=== PATIENT | male | born 1940 | race African-American/Black ===

== ENCOUNTER 2022-09-20 19:12 | Inpatient (IN) | payer MEDICARE, MEDICAID ==
[~2022-09-20] VITALS: Ht 185.4 cm; Wt 77.0 kg
[2022-09-20] MEDS ORDERED: ALLO-45 PO (22:37)
[2022-09-20] MEDS ORDERED: FOLI-130 PO (22:37)
[2022-09-20] MEDS ORDERED: ENOX40SY14 SQ (22:37)
[2022-09-20] MEDS ORDERED: SERT-158 PO (22:37)
[2022-09-20 22:48] LABS: BASOPHILS % (AUTO) 0.6 % (0.0-2.0); EOSINOPHILS % (AUTO) 0.6 % (1.0-6.0); HEMATOCRIT 26.5 % (41-53); HEMOGLOBIN 8.9 g/dL (13.5-17.5); LYMPHOCYTES # (AUTO) 0.8 K/uL (1.0-4.8); LYMPHOCYTES % (AUTO) 20.9 % (22.0-44.0); MEAN CORPUSCULAR HEMOGLOBIN 27.8 pg (26.0-34.0); MEAN CORPUSCULAR HGB CONC 33.7 G/dL (31.0-37.0); MEAN CORPUSCULAR VOLUME 83 fL (80-100); MONOCYTES # (AUTO) 0.5 K/uL (0.1-1.0); MONOCYTES % (AUTO) 12.6 % (2.0-9.0); NEUTROPHILS # (AUTO) 2.6 K/uL (1.8-7.7); NEUTROPHILS % (AUTO) 65.3 % (40.0-70.0); PLATELET COUNT (AUTO) 208 K/uL (150-450); RED BLOOD CELL COUNT(AUTO) 3.21 MIL/uL (4.50-5.90); RED CELL DISTRIBUTION WIDTH 15.1 % (11.5-14.5)
[2022-09-20 22:54] LABS: ANION GAP 7 mmol/L (8-16); CALCIUM, TOTAL 8.7 mg/dL (8.8-10.5); CARBON DIOXIDE 26 mmol/L (22-29); CHLORIDE 100 mmol/L (98-107); CREATININE 1.36 mg/dL (0.60-1.30); GLUCOSE,RANDOM 99 mg/dL (70-110); POTASSIUM 4.4 mmol/L (3.5-5.1); SODIUM SERUM 133 mmol/L (136-145); UREA NITROGEN, BLOOD 33 mg/dL (7-18)
[2022-09-20 22:56] LABS: GLOMERULAR FILTR. RATE CALC 50 mL/min (>60)
[2022-09-20 23:00] LABS: ALANINE AMINOTRANSFERASE 19 U/L (12-78); ALBUMIN 2.8 g/dL (3.4-5.0); ALKALINE PHOSPHATASE 89 U/L (46-116); ASPARTATE AMINOTRANSFERASE 39 U/L (15-37); BILIRUBIN,TOTAL 0.3 mg/dL (0.1-1.0); TOTAL PROTEIN, SERUM 6.4 g/dL (6.4-8.2)
[2022-09-20 23:00] LABS: AMPHET/METH SCREEN,URINE NEGATIVE (NEGATIVE); BARBITURATE SCREEN, URINE NEGATIVE (NEGATIVE); BENZODIAZEPINES SCREEN,URINE NEGATIVE (NEGATIVE); CANNABINOID SCREEN,URINE NEGATIVE (NEGATIVE); COCAINE SCREEN,URINE NEGATIVE (NEGATIVE); METHADONE SCREEN, URINE NEGATIVE (NEGATIVE); OPIATE SCREEN,URINE NEGATIVE (NEGATIVE)
[2022-09-20 23:01] LABS: PHENCYCLIDINE SCREEN,URINE NEGATIVE (NEGATIVE)
[2022-09-20] MEDS ORDERED: LORazepam 1 MG TABLET PO ONE (23:30)
[2022-09-21 00:47] LABS: COVID AG,FIA SOURCE NASAL SWAB
[2022-09-21] MEDS: LORazepam 2 MG TABLET PO PRN ×2 (10:17→18:02)
[2022-09-21] MEDS: HALOPERIDOL 5 MG TABLET PO PRN ×2 (10:17→18:02)
[2022-09-21 11:19] VITALS: BP 138/86
[2022-09-21 16:05] VITALS: BP 131/82
[2022-09-21] MEDS ORDERED: ONDANSETRON HCL 4 MG TABLET PO PRN (16:45)
[2022-09-21] MEDS ORDERED: MAGNESIUM HYDROXIDE SUSPENSION 30 ML UDCUP PO PRN (16:45)
[2022-09-21] MEDS ORDERED: DOCUSATE SODIUM 100 MG CAPSULE PO PRN (16:45)
[2022-09-21] MEDS ORDERED: MAG HYDROX/AL HYDROX/SIMETH ES 30 ML SUSPENSION UDCUP PO PRN (16:45)
[2022-09-21] MEDS ORDERED: ACETAMINOPHEN 325 MG TABLET PO PRN (16:45)
[2022-09-21] MEDS ORDERED: ALBUTEROL SULFATE HFA 90 MCG/PUFF 8 GM INHALER IH PRN (16:45)
[2022-09-21] MEDS ORDERED: PETROLATUM,WHITE 28 GM JELLY TP PRN (16:45)
[2022-09-21] MEDS ORDERED: IBUPROFEN 400 MG TABLET PO PRN (16:45)
[2022-09-21] MEDS ORDERED: NICOTINE 14 MG/24 HOUR PATCH TD PRN (16:45)
[2022-09-21] MEDS ORDERED: LOPERAMIDE HCL 2 MG CAPSULE PO PRN (16:45)
[2022-09-21] MEDS ORDERED: GuaiFENesin/D-METHORPHAN [SUGAR-FREE] 200-20MG/10 ML SYRUP UDCUP PO PRN (16:45)
[2022-09-21] MEDS ORDERED: CloNIDine HCL 0.1 MG TABLET PO PRN (16:45)
[2022-09-21] MEDS: SENNOSIDES/DOCUSATE SODIUM 8.6-50 MG TABLET PO SCH (20:43)
[2022-09-22 09:04] VITALS: BP 162/76
[2022-09-22] MEDS: ALLOPURINOL 300 MG TABLET PO SCH (09:30)
[2022-09-22] MEDS: MULTIVITAMINS WITH MINERALS, THERAPEUTIC TABLET PO SCH (09:30)
[2022-09-22] MEDS: LORazepam 2 MG TABLET PO PRN (10:15)
[2022-09-22] MEDS: DIVALPROEX SODIUM 250 MG DR TABLET PO SCH ×2 (11:35→21:15)
[2022-09-22] MEDS: SERTRALINE HCL 50 MG TABLET PO SCH (11:37)
[2022-09-22 16:07] VITALS: BP 162/87
[2022-09-22] MEDS: MELATONIN 5 MG TABLET PO SCH (21:15)
[2022-09-22] MEDS: SENNOSIDES/DOCUSATE SODIUM 8.6-50 MG TABLET PO SCH (21:28)
[2022-09-23 02:10] VITALS: BP 161/91
[2022-09-23] MEDS: LORazepam 2 MG TABLET PO PRN ×2 (02:11→10:14)
[2022-09-23] MEDS: HALOPERIDOL 5 MG TABLET PO PRN ×2 (02:12→10:14)
[2022-09-23] MEDS: MULTIVITAMINS WITH MINERALS, THERAPEUTIC TABLET PO SCH (08:52)
[2022-09-23] MEDS: DIVALPROEX SODIUM 250 MG DR TABLET PO SCH ×2 (08:53→20:51)
[2022-09-23] MEDS: SERTRALINE HCL 50 MG TABLET PO SCH (08:53)
[2022-09-23] MEDS: ALLOPURINOL 300 MG TABLET PO SCH (08:54)
[2022-09-23 09:09] VITALS: BP 131/67
[2022-09-23 16:56] VITALS: BP 134/80
[2022-09-23] MEDS: MELATONIN 5 MG TABLET PO SCH (20:51)
[2022-09-23] MEDS: SENNOSIDES/DOCUSATE SODIUM 8.6-50 MG TABLET PO SCH (20:51)
[2022-09-24 04:03] VITALS: BP 165/94
[2022-09-24] MEDS: HALOPERIDOL 5 MG TABLET PO PRN (04:09)
[2022-09-24] MEDS: LORazepam 2 MG TABLET PO PRN (04:09)
[2022-09-24 08:00] VITALS: BP 133/86
[2022-09-24] MEDS: ALLOPURINOL 300 MG TABLET PO SCH (08:40)
[2022-09-24] MEDS: DIVALPROEX SODIUM 250 MG DR TABLET PO SCH ×2 (08:40→20:12)
[2022-09-24] MEDS: SERTRALINE HCL 50 MG TABLET PO SCH (08:40)
[2022-09-24] MEDS: MULTIVITAMINS WITH MINERALS, THERAPEUTIC TABLET PO SCH (08:40)
[2022-09-24 16:00] VITALS: BP 147/87
[2022-09-24] MEDS: SENNOSIDES/DOCUSATE SODIUM 8.6-50 MG TABLET PO SCH (20:12)
[2022-09-24] MEDS: MELATONIN 5 MG TABLET PO SCH (20:12)
[2022-09-24] MEDS: ZOLPIDEM TARTRATE 10 MG TABLET PO PRN (23:35)
[2022-09-25 08:42] VITALS: BP 136/86
[2022-09-25] MEDS: MULTIVITAMINS WITH MINERALS, THERAPEUTIC TABLET PO SCH (11:10)
[2022-09-25] MEDS: SERTRALINE HCL 50 MG TABLET PO SCH (11:10)
[2022-09-25] MEDS: ALLOPURINOL 300 MG TABLET PO SCH (11:11)
[2022-09-25] MEDS: DIVALPROEX SODIUM 250 MG DR TABLET PO SCH ×2 (11:11→21:47)
[2022-09-25] MEDS: HALOPERIDOL 5 MG TABLET PO PRN (11:14)
[2022-09-25] MEDS: LORazepam 2 MG TABLET PO PRN (11:14)
[2022-09-25 16:44] VITALS: BP 132/82
[2022-09-25 20:31] VITALS: BP 133/76
[2022-09-25] MEDS: MELATONIN 5 MG TABLET PO SCH (21:48)
[2022-09-25] MEDS: ZOLPIDEM TARTRATE 10 MG TABLET PO PRN (21:48)
[2022-09-25] MEDS: SENNOSIDES/DOCUSATE SODIUM 8.6-50 MG TABLET PO SCH (21:49)
[2022-09-26 06:43] LABS: COVID AG,FIA SOURCE NASAL SWAB
[2022-09-26] MEDS: SERTRALINE HCL 50 MG TABLET PO SCH (08:42)
[2022-09-26] MEDS: DIVALPROEX SODIUM 250 MG DR TABLET PO SCH ×2 (08:42→20:19)
[2022-09-26] MEDS: MULTIVITAMINS WITH MINERALS, THERAPEUTIC TABLET PO SCH (08:43)
[2022-09-26] MEDS: ALLOPURINOL 300 MG TABLET PO SCH (08:43)
[2022-09-26 09:24] VITALS: BP 130/79
[2022-09-26 16:45] VITALS: BP 138/88
[2022-09-26] MEDS: SENNOSIDES/DOCUSATE SODIUM 8.6-50 MG TABLET PO SCH (20:17)
[2022-09-26] MEDS: MELATONIN 5 MG TABLET PO SCH (20:17)
[2022-09-26 21:10] VITALS: BP 123/80
[2022-09-27 08:26] VITALS: BP 121/77
[2022-09-27] MEDS: SERTRALINE HCL 50 MG TABLET PO SCH (09:00)
[2022-09-27] MEDS: DIVALPROEX SODIUM 250 MG DR TABLET PO SCH (09:00)
[2022-09-27] MEDS: MULTIVITAMINS WITH MINERALS, THERAPEUTIC TABLET PO SCH (09:00)
[2022-09-27] MEDS: ALLOPURINOL 300 MG TABLET PO SCH (09:00)
[2022-09-27 16:53] VITALS: BP 164/95
[2022-09-27] MEDS: ZOLPIDEM TARTRATE 10 MG TABLET PO PRN (20:14)
[2022-09-27] MEDS: VALPROIC ACID 250 MG/5 ML SOLUTION UDCUP PO SCH (20:14)
[2022-09-27] MEDS: MELATONIN 5 MG TABLET PO SCH (20:15)
[2022-09-27] MEDS: SENNOSIDES/DOCUSATE SODIUM 8.6-50 MG TABLET PO SCH (20:15)
[2022-09-27] MEDS: HALOPERIDOL 5 MG TABLET PO PRN (20:16)
[2022-09-28 08:20] VITALS: BP 120/84
[2022-09-28] MEDS: ALLOPURINOL 300 MG TABLET PO SCH (08:56)
[2022-09-28] MEDS: SERTRALINE HCL 50 MG TABLET PO SCH (08:57)
[2022-09-28] MEDS: VALPROIC ACID 250 MG/5 ML SOLUTION UDCUP PO SCH ×2 (08:57→20:21)
[2022-09-28] MEDS: MULTIVITAMINS WITH MINERALS, THERAPEUTIC TABLET PO SCH (08:57)
[2022-09-28 16:12] VITALS: BP 126/77
[2022-09-28] MEDS: ZOLPIDEM TARTRATE 10 MG TABLET PO PRN (20:21)
[2022-09-28] MEDS: SENNOSIDES/DOCUSATE SODIUM 8.6-50 MG TABLET PO SCH (20:21)
[2022-09-28] MEDS: MELATONIN 5 MG TABLET PO SCH (20:21)
[2022-09-28] MEDS: HALOPERIDOL 5 MG TABLET PO PRN (20:21)
[2022-09-29 08:01] VITALS: BP 137/86
[2022-09-29] MEDS: SERTRALINE HCL 50 MG TABLET PO SCH (08:55)
[2022-09-29] MEDS: VALPROIC ACID 250 MG/5 ML SOLUTION UDCUP PO SCH ×2 (08:55→20:42)
[2022-09-29] MEDS: ALLOPURINOL 300 MG TABLET PO SCH (08:55)
[2022-09-29] MEDS: ERYTHROMYCIN 0.5% 3.5 GM TUBE OPHTHALMIC OINTMENT OS SCH ×2 (08:56→16:13)
[2022-09-29] MEDS: MULTIVITAMINS WITH MINERALS, THERAPEUTIC TABLET PO SCH (08:56)
[2022-09-29 15:49] VITALS: BP 123/73
[2022-09-29 16:35] VITALS: BP 123/73
[2022-09-29] MEDS: HALOPERIDOL 5 MG TABLET PO PRN (20:42)
[2022-09-29] MEDS: LORazepam 2 MG TABLET PO PRN (20:42)
[2022-09-29] MEDS: MELATONIN 5 MG TABLET PO SCH (20:42)
[2022-09-29] MEDS: SENNOSIDES/DOCUSATE SODIUM 8.6-50 MG TABLET PO SCH (20:42)
[2022-09-30 08:01] VITALS: BP 122/76
[2022-09-30] MEDS: VALPROIC ACID 250 MG/5 ML SOLUTION UDCUP PO SCH ×2 (09:00→21:00)
[2022-09-30] MEDS: ALLOPURINOL 300 MG TABLET PO SCH (09:00)
[2022-09-30] MEDS: MULTIVITAMINS WITH MINERALS, THERAPEUTIC TABLET PO SCH (09:00)
[2022-09-30] MEDS: SERTRALINE HCL 50 MG TABLET PO SCH (09:00)
[2022-09-30] MEDS: ERYTHROMYCIN 0.5% 3.5 GM TUBE OPHTHALMIC OINTMENT OS SCH ×2 (09:00→16:50)
[2022-09-30 17:09] VITALS: BP 130/84
[2022-09-30] MEDS ORDERED: ZOLPIDEM TARTRATE 5 MG TABLET PO PRN (19:00)
[2022-09-30] MEDS ORDERED: QUEtiapine FUMARATE 25 MG TABLET PO PRN (19:00)
[2022-09-30] MEDS ORDERED: ZOLPIDEM TARTRATE 10 MG TABLET PO PRN (19:00)
[2022-09-30] MEDS: MELATONIN 5 MG TABLET PO SCH (21:00)
[2022-09-30] MEDS: SENNOSIDES/DOCUSATE SODIUM 8.6-50 MG TABLET PO SCH (21:00)
[2022-09-30] MEDS ORDERED: LORazepam 1 MG TABLET PO PRN (21:45)
== END 2022-09-30 22:00 | disposition short-term general hospital (02) | DRG 885 ==
LOC: EMS 19:16 → 3EX 09-21 10:26
PROVIDERS: ADMIT Psychiatry & Neurology Psychiatry; ATTEND Psychiatry & Neurology Psychiatry
DX: F33.3 Major depressive disorder, recurrent, severe with psychotic symptoms (principal); N17.9 Acute kidney failure, unspecified; Z20.822 Contact with and (suspected) exposure to COVID-19; G30.9 Alzheimer's disease, unspecified; I10 Essential (primary) hypertension; M10.9 Gout, unspecified; N40.0 Benign prostatic hyperplasia without lower urinary tract symptoms; R13.10 Dysphagia, unspecified; F02.80 Dementia in other diseases classified elsewhere, unspecified severity, without behavioral disturbance, psychotic disturbance, mood disturbance, and anxiety; D64.9 Anemia, unspecified; E78.5 Hyperlipidemia, unspecified; D72.819 Decreased white blood cell count, unspecified; Z79.899 Other long term (current) drug therapy; Z87.820 Personal history of traumatic brain injury; Z91.81 History of falling
CPT/HCPCS: 74230; 80053; 80164; 85025; 87081; 92610; 92611; 97162; 97530; 99285; G0378; G0480; Q9967